=== PATIENT | female | born 1985 | race Caucasian/White ===

== ENCOUNTER 2016-04-02 06:22 | Inpatient (IN) | payer BC ==
--- NOTE | 2016-03-22 15:48 | HP ---
PREOPERATIVE HISTORY AND PHYSICAL: DATE OF ADMISSION: This patient is scheduled for AA admission by Dr. Martinez on 04/02/16. DATE OF PREOPERATIVE HISTORY AND PHYSICAL EXAMINATION: 03/19/16. ATTENDING SURGEON: Dr. Sukhjinder Martinez (dictated by Ingris Hobson NP). CHIEF COMPLAINT: Morbid obesity. HISTORY OF PRESENT ILLNESS: The patient is a 30-year-old female with a body mass index of 54.9, who has been deemed an appropriate candidate by Dr. Martinez to proceed with laparoscopic sleeve gastrectomy. She has a long-standing history of obesity and has tried and failed multiple medical attempts at weight loss. She has support of her primary care provider, Dr. Sheila Grijalva. She has completed all of the necessary preoperative diagnostic testing and evaluations. Dr. Martinez has discussed with her the nature of laparoscopic sleeve gastrectomy and at the same setting, she will also have a hiatal hernia repair; Dr. Martinez discussed the expected results of surgery, the relevant risks, benefits, and alternatives, and today I reviewed the typical hospitalization and the expected postoperative care and recovery. The patient understands the need to comply with the recommended diet stages, exercise, vitamin and mineral supplementation, and followup visits at [facility]. The patient has had a chance to ask questions and stated that she understands the information and is satisfied with the answers given to her questions. She will sign surgical consent on the day of surgery. PAST MEDICAL HISTORY: Significant for clinically severe obesity, prediabetes, gastroesophageal reflux disease, irregular periods, and obstructive sleep apnea. PAST SURGICAL HISTORY: None. OB HISTORY: 0. Last menstrual period November 2015, her periods are very irregular; she is up-to-date with pelvic and Pap smear. EDICATIONS: 1. Omeprazole 40 mg p.o. daily. 2. She had been on an oral contraceptive called Tri-Estarylla, and she was advised to discontinue that preoperatively and she took her last dose 03/18/____ _. ALLERGIES: No known drug allergies. FAMILY HISTORY: She reports that obesity runs on her mother's side of the family; both mother and father have had diabetes; paternal grandmother from esophageal cancer and was described as obese. No known history of deep vein thrombosis or pulmonary embolism or bleeding tendencies or anesthesia complications. SOCIAL HISTORY: She is and employed as a mortgage processing clerk. She quit smoking 4 years ago after smoking 1 pack a day for 4 years; she rarely drinks alcohol and denies the use of other substances. REVIEW OF SYSTEMS: No recent illnesses; she denies any cardiac conditions or complaints; she has obstructive sleep apnea and uses CPAP; she denies any recent upper respiratory infections; she quit smoking 4 years ago; she underwent upper endoscopy preoperatively and that revealed a [id number] sized hiatal hernia, otherwise within normal limits with a negative CLOtest; she has had long-standing gastroesophageal reflux disease; she denies any chronic constipation; she denies any dysuria, denies any recent urinary tract infections, and denies any history of kidney stones; she denies any neurologic conditions or complaints; she denies any history of unusual bleeding and has never required a blood transfusion; she has tolerated local anesthesia as well as intravenous sedation without any problems. She denies any history of deep vein thrombosis or pulmonary embolism. She has had an elevated hemoglobin A1c and has been on metformin in the past. PHYSICAL EXAMINATION GENERAL SURVEY: The patient is a 30-year-old morbidly obese female. VITAL SIGNS: She stands at 63 inches and weighs 310 pounds for a body mass index of 54.9; blood pressure 128/88, pulse 80 and regular, respiratory rate 20 , temperature 98.8 tympanic. HEENT: Benign. Anicteric sclerae. NECK: Supple. No cervical lymphadenopathy. No thyromegaly. BACK: No CVA tenderness. LUNGS: Breath sounds bilaterally clear and equal. HEART: Regular rate and rhythm. No murmurs or rubs. ABDOMEN: No surgical scars, obese, active bowel sounds, soft, and nontender throughout. No obvious masses, organomegaly, or evidence of ventral hernia, although exam is limited by body habitus. PELVIC AND RECTAL: Up-to-date. Not repeated. EXTREMITIES: Warm without edema or skin ulcerations. NEUROLOGIC: Alert and oriented x3. Steady gait. SKIN: Warm, dry, intact. IMPRESSION: 1. Morbid obesity. 2. Obstructive sleep apnea, requiring CPAP. 3. Gastroesophageal reflux disease. 4. Prediabetes. PLAN: AA admission to Dr. Martinez' service for laparoscopic sleeve gastrectomy on 04/02/16. The patient will have been on her preop diet for 4 weeks. INGRIS HOBSON NP CC: Dr. Sheila Grijalva* [id number]/[facility] #: [id number] [facility]
[~2016-04-02 06:22] MED LIST: Buffered Lidocaine 1% SYR 3ML* 3 ML/SYR SYRINGE INTRADERM ONE; Famotidine IV* 10 MG/ML 2 ML (20 mg) IV ONE; Morphine INJ* 2 MG/ML 1 ML CARPUJECT IV PRN; PROCHLORPERAZINE INJ 5 MG/ML 2 ML VIAL IV PRN
[2016-04-02 06:53] LABS: UR Preg Internal Control QC Line Present
[2016-04-02] MEDS ORDERED: Scopolamine 1.5 mg* PATCH ONE (07:00)
[2016-04-02] MEDS ORDERED: Scopolamine 1.5 mg* PATCH TRANSDERM SCH (07:00)
[2016-04-02] MEDS ORDERED: ceFAZolin 2 GM PREMIX (*) 2 GM/50 ML BAG IVPB ONE (07:00)
[2016-04-02] MEDS ORDERED: ceFAZolin 1 GM in Dextrose (*) 1 GM/50 ML BAG IVPB ONE (07:00)
[2016-04-02] MEDS ORDERED: Famotidine IV* 10 MG/ML 2 ML (20 mg) ONE (07:00)
[2016-04-02] MEDS ORDERED: Bupivacaine 0.5% W/EPI SDV* 30 ML VIAL ONE ×2 (07:17→08:20)
[2016-04-02] MEDS ORDERED: Clindamycin 900 MG IVPREMIX(* 900 MG/50 ML SDV IV ONE (07:26)
[2016-04-02] MEDS ORDERED: fentaNYL* 50 MCG/ML 2 ML VIAL (100 MCG VIAL) ONE ×2 (07:38→10:03)
[2016-04-02] MEDS ORDERED: Morphine INJ* 10 MG/ML 1 ML CARPUJECT ONE ×2 (07:38→10:47)
[2016-04-02] MEDS ORDERED: Midazolam* 1 MG/ML 5 ML VIAL (5 MG) ONE (07:38)
[2016-04-02] MEDS ORDERED: KETAMINE HCL* 50 MG/ML 10 ML VIAL ONE (07:38)
[2016-04-02] MEDS ORDERED: Atracurium* 10 MG/ML 10 ML VIAL ONE (07:39)
[2016-04-02] MEDS ORDERED: Dexamethasone IV* 4 MG/ML 1 ML (4 MG) ONE (08:30)
[2016-04-02] MEDS ORDERED: PROCHLORPERAZINE INJ 5 MG/ML 2 ML VIAL ONE ×2 (08:30→10:03)
[2016-04-02] MEDS ORDERED: Propofol* 10 MG/ML 20 ML BTL IV PUSH ONE (08:30)
[2016-04-02] MEDS ORDERED: Neostigmine Methylsulfate* 2 MG/2 ML SYRINGE ONE (08:30)
[2016-04-02] MEDS ORDERED: Phenylephrine INJ* 10 MG/ML 1 ML VIAL (10 MG) ONE (08:30)
[2016-04-02] MEDS ORDERED: Lidocaine 2% PF * 5 ML VIAL ONE (08:30)
[2016-04-02] MEDS ORDERED: Ondansetron INJ* 2 MG/ML VIAL ONE (08:30)
[2016-04-02] MEDS ORDERED: Glycopyrrolate IV* 0.2 MG/ML 1 ML VIAL ONE (08:30)
[2016-04-02] MEDS ORDERED: HYDROcodone/ACET. 7.5/325 LIQ* 15 ML UDC PO PRN (09:51)
[2016-04-02] MEDS ORDERED: diPHENhydraMINE IV* 50 MG/ML 1 ml VIAL (BENADRYL) SLOW PUSH PRN (09:51)
[2016-04-02] MEDS ORDERED: Acetaminophen ADULT LIQ* 650 MG/20.3 ML UDC PO PRN (09:51)
[2016-04-02] MEDS ORDERED: Ondansetron INJ* 2 MG/ML VIAL IV PRN (09:51)
[2016-04-02] MEDS ORDERED: Pantoprazole IV* 40 MG IV SCH ×2 (10:00→14:00)
[2016-04-02] MEDS: fentaNYL* 50 MCG/ML 2 ML VIAL (100 MCG VIAL) IV PRN ×4 (10:04→10:24)
[2016-04-02] MEDS ORDERED: Ketorolac INJ* 30 MG/ML 1 ML VIAL ONE (12:35)
[2016-04-02] MEDS: Heparin VIAL(*) 5000 UNITS/ML VIAL (FIVE THOUSAND) SUBCUT SCH ×2 (13:50→22:01)
[2016-04-02] MEDS: HYDROmorphone INJ* 1 MG/ML CARPUJECT SYRINGE IV PRN ×2 (14:32→20:11)
[2016-04-02] MEDS: Ketorolac INJ* 30 MG/ML 1 ML VIAL IV PRN (23:54)
[2016-04-03] MEDS: HYDROmorphone INJ* 1 MG/ML CARPUJECT SYRINGE IV PRN (05:01)
[2016-04-03] MEDS: Heparin VIAL(*) 5000 UNITS/ML VIAL (FIVE THOUSAND) SUBCUT SCH (05:01)
[2016-04-03] MEDS: Ketorolac INJ* 30 MG/ML 1 ML VIAL IV PRN (07:45)
[2016-04-03 07:56] VITALS: BP 142/74
--- NOTE | 2016-04-03 09:25 | PN ---
Progress Note - Progress Note SOAP: DISCHARGE NOTE Subjective:slept well,tolerating clears,walking in halls,voiding large,good pain control,wants to go home [] Objective:awake and alert;lungs:clear bilat;heart:RRR,no m/r/g;abd:obese,+bs, soft,incisions intact with marques and dressings,no drainage,no erythema;ext: nontender,no edema Vital Signs Temp 98.4 F 04/03/16 07:11 Pulse 70 04/03/16 08:47 Resp 18 04/03/16 08:54 BP 142/74 04/03/16 07:11 Pulse Ox 100 04/03/16 08:54 Intake & Output 04/02/16 04/03/16 04/03/16 18:59 06:59 18:59 Intake Total 1800 1690 Output Total 500 2100 150 Balance 1300 -410 -150 Weight 301 lb 9.6 oz Intake: IV Fluids 1800 1040 LR 1800 1040 Oral 0 650 Output: Urine 500 2100 150 Other: Estimated Void Small # Bowel Movements 0 # Voids 1 [] Assessment:doing well POD#1 s/p lap sleeve gastrectomy [] Plan:discharge home,instructions reviewed;followup in office next week []
[2016-04-03] MEDS ORDERED: D5W 1/2 NS KCl 20 Meq 1000 ML* 1,000 ML IV SCH (09:52)
--- NOTE | 2016-04-03 10:55 | DS ---
DISCHARGE SUMMARY: DATE OF ADMISSION: 04/02/16 DATE OF DISCHARGE: 04/03/16 DATE OF DICTATION: 04/03/16 ATTENDING PHYSICIAN: Dr. Sukhjinder Martinez. HOSPITAL COURSE: Please refer to admission history and physical for admission details. The patient was taken to the operating room on April 02, 2016 and underwent laparoscopic sleeve gastrectomy. She had an otherwise uneventful postoperative course; and, as of the morning of discharge, was tolerating a 120 mL of clear liquids per hour. She was up walking, her pain was well controlled , and she was voiding large amounts. PHYSICAL EXAMINATION: Her temperature was 98.4, blood pressure was 142/74, pulse 70, respirations 18 and O2 saturation on room air 99%. General: Awake, alert and in no acute distress, sitting up on the edge of the bed drinking clear fluids. Lungs: Clear to auscultation. No rales or wheezes. Heart: Regular rate and rhythm. No murmurs, rubs or gallops. Abdomen: Active bowel sounds. Obese, soft. Laparoscopic incision sites intact with Steri-Strips. No erythema. No active bleeding or drainage. Extremities: Nontender. No edema. IMPRESSION: Postop day #1 status post laparoscopic sleeve gastrectomy, doing very well. PLAN: Discharge home today; discharge instructions were reviewed. Medications were reviewed, she will follow the prescribed bariatric dietary guidelines, and she will have a follow-up appointment in our office on April 10, 2016. INGRIS HOBSON NP CC: [facility]; Dr. Sheila Grijalva* [id number]/[facility] #: [id number] [facility]IT[facility]rystal
--- NOTE | 2016-04-04 01:48 | OP ---
DATE OF OPERATION: 04/02/16 - ROOM #351 DATE OF : 81 SURGEON: Sukhjinder Martinez MD WAGON DRIVER SALESPERSON: Kerwin Moreno MD ANESTHESIOLOGIST: Dr. Streeter. ANESTHESIA: General endotracheal. PRE-OP DIAGNOSE: Morbid obesity and hiatal hernia. POST-OP DIAGNOSES: Morbid obesity and hiatal hernia. OPERATIVE PROCEDURE: Laparoscopic sleeve gastrectomy and hiatal hernia repair. ESTIMATED BLOOD LOSS: Minimal. IV FLUIDS: Crystalloids. SPECIMEN: None. DRAINS: None. COMPLICATIONS: None. COUNTS: The instrument, needle, and sponge counts were correct. DESCRIPTION OF PROCEDURE: The patient was brought to the operating room, placed on the table supine. Sequential compression devices were placed on both lower extremities. General anesthesia was administered. Her abdomen was prepped and draped in the usual sterile fashion. She received appropriate intravenous antibiotics. Entry to the abdomen was through a left upper quadrant incision made to accommodate a 5-mm optical trocar. After accessing the peritoneal cavity, carbon dioxide was insufflated to a pressure of 15 mmHg. A Bernabe liver retractor was placed in the subxiphoid position and used to elevate the left lobe of the liver. No hiatal hernia was immediately evident. Under direct visualization, a 12-mm trocar was placed in the supraumbilical position, a 15- mm trocar placed in the right upper quadrant, and a 5-mm trocar placed in the left upper quadrant laterally. With the patient in reverse Trendelenburg, the pylorus was identified and 6 cm proximal to this, on the greater curvature, the LigaSure was used to skeletonize the greater curvature extending this all the way up to the gastroesophageal junction. Attempts to visualize the posterior hiatus did not reveal any obvious hernia. There was no obvious dimpling anteriorly. The dissection proceeded to enter through the pars flaccida; however, there appeared to be a large vessel coursing through this, as well as a second, larger vessel posteriorly that appeared to be coming directly along the course of the right citlali of diaphragm. Ultimately, dissection then proceeded above the crossing vessels in the pars flaccida and the right citlali of the diaphragm was identified. Again, there was no evidence of a clear hiatal hernia at this point, but upon dissection of the esophageal-phrenic ligament across the anterior portion, there did appear to be a small hiatal hernia present and ultimately it was decided to repair this with an anterior stitch. Prior to this, a sleeve gastrectomy was performed over a 40-Azeri bougie with the Endo CARMEN stapler using reinforced cartridges. The black cartridge was used on the antrum and purple cartridges were used along the remaining portions of the stomach. Next, the repair of the hiatal hernia was performed with a single stitch anteriorly using a 0 Ti-Cron suture. After completing this repair, the specimen was placed into a retrieval bag and retrieved through the right upper quadrant wound and then this wound was closed with 0 Polysorb in an interrupted fashion to approximate muscle and fascia in one layer. After assuring hemostasis, the trocars and liver retractor were removed under direct visualization and carbon dioxide was released. The wounds were then closed with marques and dressings applied. The patient tolerated the procedure well, was extubated, and transferred to the recovery room in stable condition. CC: Sheila Grijalva MD* [id number]/[facility] #: [id number] M[facility]Krystal
[2016-04-05] MEDS ORDERED: Scopolamine PATCH Remove* 1 NOTE MISC PATCH OFF SCH (07:00)
== END 2016-04-03 11:35 | disposition home or self-care (01) | DRG 403 ==
LOC: AA 06:22 → SSU 12:23
PROVIDERS: ADMIT Surgery; ATTEND Surgery
PROC: 0BQS4ZZ (ICD-10-PCS; 2016-04-02)
PROC: 0DB64Z3 Excision of Stomach, Percutaneous Endoscopic Approach, Vertical (ICD-10-PCS; principal; 2016-04-02 08:00)
DX: E66.01 Morbid (severe) obesity due to excess calories (principal); G47.33 Obstructive sleep apnea (adult) (pediatric); Z68.43 Body mass index [BMI] 50.0-59.9, adult; R73.03 Prediabetes; K21.9 Gastro-esophageal reflux disease without esophagitis; Z79.3 Long term (current) use of hormonal contraceptives; Z79.899 Other long term (current) drug therapy; Z83.3 Family history of diabetes mellitus; Z80.0 Family history of malignant neoplasm of digestive organs; Z87.891 Personal history of nicotine dependence; K44.9 Diaphragmatic hernia without obstruction or gangrene
CPT/HCPCS: 81025; 88307; A9270-GY; J0690; J0780; J1100; J1170; J1644; J1885; J2250; J2270; J2405; J2704; J3010

== ENCOUNTER 2016-06-19 00:09 | Emergency (ER) | payer BC ==
[2016-06-19] MEDS ORDERED: NS 0.9% 1000 ML* 1,000 ML IV ONE (00:49)
[2016-06-19] MEDS ORDERED: Morphine INJ* 4 MG/ML 1 ML SYRINGE IV ONE (00:49)
[2016-06-19] MEDS ORDERED: Ondansetron INJ* 2 MG/ML VIAL IV ONE (00:49)
[2016-06-19 01:51] LABS: Hematocrit 37 % (35-47); Hemoglobin 12.2 g/dl (12.0-16.0); Mean Corpuscular HGB Conc 33 g/dl (31-36); Mean Corpuscular Hemoglobin 26 pg (27-31); Mean Corpuscular Volume 79 fL (80-97); Mean Platelet Volume 8 um3 (7.4-10.4); Red Blood Count 4.64 10^6/ul (4.0-5.4); Red Cell Distribution Width 15 % (10.5-15); White Blood Count 10.5 10^3/ul (3.5-10.8)
[2016-06-19 02:05] LABS: ALT 17 U/L (7-52); AST 18 U/L (13-39); Albumin 3.4 g/dL (3.2-5.2); Alkaline Phosphatase 56 U/L (34-104); Anion Gap 8 mmol/L (2-11); BUN/Creatinine Ratio 11.1 (8-20); Blood Urea Nitrogen 11 mg/dL (6-24); CO2 Carbon Dioxide 24 mmol/L (22-32); Calcium 8.8 mg/dL (8.6-10.3); Chloride 103 mmol/L (101-111); EGFR African American 83.6 (>60); Glucose 99 mg/dL (70-100); Lipase 101 U/L (11.0-82.0); Potassium 3.6 mmol/L (3.5-5.0); Sodium 135 mmol/L (133-145); Total Protein 6.4 g/dL (6.4-8.9)
[2016-06-19 02:09] LABS: Urine Bacteria 1+ (Absent); Urine Bilirubin Negative (Negative); Urine Glucose Negative (Negative); Urine Nitrite Negative (Negative)
[2016-06-19] MEDS ORDERED: oxyCODONE/Acetamin 5/325 MG* TAB PO ONE (02:56)
[2016-06-19 03:10] VITALS: BP 140/100
--- NOTE | 2016-06-19 03:29 | ED ---
Becky Rios Alok, scribed for Carlyle Gutierrez on 06/19/16 at 0103 . Abdominal Pain/Female - HPI Summary HPI Summary: 30 y/o female presents to the ED for left flank pain beginning this evening. Pt states that her pain waxes and wanes in intensity and denies fever, nausea, rash , or vomiting. Pt is currently menstruating and unable to confirm/deny hematuria. Pt has h/o kidney stones and states that this feels similar to one. PSHx includes a gastric bypass 2.5 months ago. She drinks ETOH rarely. Pt has NKDA. - History of Current Complaint Chief Complaint: EDFlankPain Stated Complaint: LT SIDE FLANK PAIN Time Seen by Provider: 06/19/16 00:33 Hx Obtained From: Patient Hx Last Menstrual Period: Currently ?: No Onset/Duration: Lasting Hours, Still Present Timing: Constant Severity Initially: Moderate Severity Currently: Moderate Pain Intensity: 8 Pain Scale Used: 0-10 Numeric Location: Flank - Left Associated Signs and Symptoms: Negative: Fever, Nausea, Vomiting, Other: - Rash Allergies/Adverse Reactions: Allergies Allergy/AdvReac Type Severity Reaction Status Date / Time No Known Allergies Allergy Verified 04/02/16 06:58 PMH/Surg Hx/FS Hx/Imm Hx Respiratory History: Reports: Hx Sleep Apnea - UNDER TX FOR 11 MONTHS GI History: Reports: Hx Gastroesophageal Reflux Disease - CONTROL WITH MEDS, Hx Hiatal Hernia - TO BE REPAIRED WITH SURGERY History: Reports: Hx Kidney Infection - AGE 6, Hx Kidney Stones - 10 YEARS AGO Sensory History: Reports: Hx Contacts or Glasses - GLASSES Denies: Hx Hearing Aid Opthamlomology History: Reports: Hx Contacts or Glasses - GLASSES Infectious Disease History: No Infectious Disease History: Denies: Traveled Outside the [place] in Last 30 Days - Family History Known Family History: Positive: Other - No- Malignant Hypothermia. No- Anesthesia Reaction. - Social History Occupation: Employed Full-time Lives: With Family Alcohol Use: Rare Substance Use Type: Reports: None Hx Tobacco Use: Yes Smoking Status (MU): Former Smoker Type: Cigarettes Amount Used/How Often: 1 PPD Have You Smoked in the Last Year: No Review of Systems Negative: Fever Negative: Vomiting, Nausea Positive: flank pain - Left Negative: Rash All Other Systems Reviewed And Are Negative: Yes Physical Exam Triage Information Reviewed: Yes Vital Signs On Initial Exam: Initial Vitals Temp Pulse Resp BP Pulse Ox 97.6 F 78 16 147/88 100 06/19/16 00:12 06/19/16 00:12 06/19/16 00:12 06/19/16 00:12 06/19/16 00:12 Vital Signs Reviewed: Yes Appearance: Positive: Well-Appearing, No Pain Distress Skin: Positive: Warm, Skin Color Reflects Adequate Perfusion, Dry Head/Face: Positive: Normal Head/Face Inspection Eyes: Positive: EOMI, TOMMIE ENT: Positive: Normal ENT inspection Neck: Positive: Supple, Nontender Respiratory/Lung Sounds: Positive: Clear to Auscultation, Breath Sounds Present Cardiovascular: Positive: RRR, Pulses are Symmetrical in both Upper and Lower Extremities Abdomen Description: Positive: Nontender, Soft Bowel Sounds: Positive: Present Musculoskeletal: Positive: Normal, Strength/ROM Intact Neurological: Positive: Normal, Sensory/Motor Intact, Alert, Oriented to Person Place, Time Diagnostics - Vital Signs Vital Signs Temp Pulse Resp BP Pulse Ox 06/19/16 00:12 97.6 F 78 16 147/88 100 - Laboratory Result Diagrams: 06/19/16 01:30 06/19/16 01:30 Lab Statement: Any lab studies that have been ordered have been reviewed, and results considered in the medical decision making process. - CT Abd/Pel CT CT Interpretation: Positive (See Comments) - Impression: Moderate distal hydroureter of a duplicated right renal collecting system secondary to a cluster of 3 distal UVJ stones measuring up to 7 mm. Moderate amoud of diffuse solid stool. CT Interpretation Completed By: Radiologist Abdominal Pain Fem Course/Dx - Course Course Of Treatment: PT came in with abd pain. Labs and CT done. pt has right renal calculi with no right sided pain. Only left flank pain. Pt demanded narcotics for pain but there was no indication of need. Will discharge with motrin and FU with urology. - Diagnoses Provider Diagnoses: Left flank pain Discharge - Discharge Plan Condition: Stable Disposition: HOME Prescriptions: Ibuprofen TAB* [Motrin TAB* 600 MG] 600 mg PO Q8H PRN #20 tab PRN Reason: Pain Patient Education Materials: Flank Pain (ED) Referrals: Jorge Corrales MD [Medical Doctor] - Additional Instructions: Please follow up with Dr. Corrales (Urology) in the next 3 days. The documentation as recorded by the Becky botello Alok accurately reflects the service I personally performed and the decisions made by me, Carlyle Gutierrez.
--- NOTE | 2016-06-19 09:32 | RAD ---
Indication: Left flank pain. CT of the abdomen and pelvis was performed without oral or IV contrast administration. Coronal and sagittal reconstructed images were obtained. The lung bases demonstrate no pleural fluid, nodules or masses. Heart is of normal size without evidence of pericardial effusion. The liver is normal in size. Low density area is noted in the medial segment of the left lobe of the liver consistent with focal fatty infiltration. No other focal lesions are noted. No intrahepatic duct dilatation is noted. The gallbladder demonstrates no calcified gallstones. No pericholecystic fluid or wall thickening is identified. Common duct is not dilated. The pancreas demonstrates no mass effect or pancreatic duct dilatation. The spleen is normal in size. The patient is status post gastric bypass surgery. No adrenal lesions are noted. The kidneys demonstrate duplicated right renal collecting system. Dilated right ureter that is conjoined is noted in the distal ureter. There are three calculi in the right ureterovesicular junction measuring up to 14 mm in total. The distal left ureter is not dilated. No retroperitoneal lymphadenopathy is noted. No dilated loops of bowel are noted. The colon is filled with stool. The uterus and ovaries are unremarkable. No hernias are noted. IMPRESSION: 1. Duplicated right renal collecting system with multiple calculi in the distal right ureter with multiple calculi in the right ureterovesicular junction within the urinary bladder. 2. Likely fatty infiltration in the medial segment of the left lobe of the liver.
== END 2016-06-19 03:10 | disposition home or self-care (01) ==
LOC: ED 00:09
DX: R10.32 Left lower quadrant pain (principal); N20.1 Calculus of ureter; Z87.442 Personal history of urinary calculi; Z32.02 Encounter for pregnancy test, result negative; K21.9 Gastro-esophageal reflux disease without esophagitis; Z98.84 Bariatric surgery status; Z87.891 Personal history of nicotine dependence
CPT/HCPCS: 36415; 74176; 80053; 81003; 81015; 83690; 84702; 85025; 85610; 85730; 87086; 96361; 96374; 96375; 99283; A9270-GY; J2270; J2405

== ENCOUNTER 2016-09-29 19:33 | Emergency (ER) | payer BC ==
[2016-09-29] MEDS ORDERED: NS 0.9% 1000 ML* 1,000 ML IV ONE (19:43)
[2016-09-29 20:28] LABS: Hematocrit 43 % (35-47); Hemoglobin 14.1 g/dl (12.0-16.0); Mean Corpuscular HGB Conc 33 g/dl (31-36); Mean Corpuscular Hemoglobin 27 pg (27-31); Mean Corpuscular Volume 82 fL (80-97); Mean Platelet Volume 8 um3 (7.4-10.4); Red Blood Count 5.21 10^6/ul (4.0-5.4); Red Cell Distribution Width 14 % (10.5-15); White Blood Count 11.4 10^3/ul (3.5-10.8)
[2016-09-29 20:40] LABS: Albumin 3.5 g/dL (3.2-5.2); BUN/Creatinine Ratio 14.3 (8-20); C Reactive Protein 8.24 mg/L (< 5.00); Calcium 8.7 mg/dL (8.6-10.3); EGFR African American 111.7 (>60); EGFR Non-African American 86.9 (>60); Globulin 3.2 g/dL (2-4); Potassium 3.4 mmol/L (3.5-5.0); Total Bilirubin 0.5 mg/dL (0.2-1.0); Total Protein 6.7 g/dL (6.4-8.9)
--- NOTE | 2016-09-29 20:40 | ED ---
I, Oh,Soohjulio césarun, scribed for Speedy Webb MD on 09/29/16 at 1945 . Abdominal Pain/Female - HPI Summary HPI Summary: This 30 y/o female presents to ED for acute onset of periumbilical pain radiating back since 40 minutes ago. Pain is rated 8/10 at its worst, and now rated as 6/10. Positive pallor and diaphoresis. Negative n/v. VSS and blood pressure of 120/70 reported by EMT. Pt was sitting in front of computer drinking coffee at the time of onset. Pt reports sudden bowel movement, but states that it is quite normal for her. APAP was taken to control her known headache, but doesn't seem to do anything for her abd pain. PMHx includes GERD, which is controlled with medication, and hernia s/p surgery repair. Pt is currently menstruating, but pt states that pain is different from her usual menstruation cramps. - History of Current Complaint Stated Complaint: ABD PAIN Time Seen by Provider: 09/29/16 19:36 Hx Obtained From: Patient, Medical Records Hx Last Menstrual Period: Currently Onset/Duration: Resolved Timing: Constant Pain Intensity: 6 Pain Scale Used: 0-10 Numeric Location: Umbilical Radiates: Yes Radiates to: Back Character: Dull Aggravating Factor(s): Nothing Alleviating Factor(s): Nothing Associated Signs and Symptoms: Positive: Diaphoresis, Other: - Suddent bowel movement. Negative: Nausea, Vomiting Allergies/Adverse Reactions: Allergies Allergy/AdvReac Type Severity Reaction Status Date / Time No Known Allergies Allergy Verified 04/02/16 06:58 PMH/Surg Hx/FS Hx/Imm Hx Respiratory History: Reports: Hx Sleep Apnea - UNDER TX FOR 11 MONTHS GI History: Reports: Hx Gastroesophageal Reflux Disease - CONTROL WITH MEDS, Hx Hiatal Hernia - TO BE REPAIRED WITH SURGERY History: Reports: Hx Kidney Infection - AGE 6, Hx Kidney Stones - 10 YEARS AGO Sensory History: Reports: Hx Contacts or Glasses - GLASSES Denies: Hx Hearing Aid Opthamlomology History: Reports: Hx Contacts or Glasses - GLASSES Infectious Disease History: Denies: Traveled Outside the [place] in Last 30 Days - Family History Known Family History: Negative: Other - No- Malignant Hypothermia. No- Anesthesia Reaction. - Social History Alcohol Use: Rare Hx Substance Use: No Substance Use Type: Reports: None Hx Tobacco Use: Yes Smoking Status (MU): Former Smoker Type: Cigarettes Amount Used/How Often: 1 PPD Have You Smoked in the Last Year: No Review of Systems Positive: Skin Diaphoresis, Other - pale. Negative: Fever Positive: Abdominal Pain - periumbilical , Other - sudden bowel movement, normal at pt's baseline. Negative: Vomiting, Nausea Positive: Other - back pain All Other Systems Reviewed And Are Negative: Yes Physical Exam Triage Information Reviewed: Yes Vital Signs Reviewed: Yes Appearance: Positive: Well-Appearing, Pain Distress - mild discomfort Skin: Positive: Warm Eyes: Positive: TOMMIE ENT: Positive: Hearing grossly normal Neck: Positive: Supple Respiratory/Lung Sounds: Positive: Breath Sounds Present Cardiovascular: Positive: RRR Abdomen Description: Positive: Nontender, Soft Bowel Sounds: Positive: Present Musculoskeletal: Positive: Strength/ROM Intact Neurological: Positive: Alert, Oriented to Person Place, Time Psychiatric: Positive: Affect/Mood Appropriate Diagnostics - Laboratory Result Diagrams: 09/29/16 20:17 09/29/16 20:17 Lab Statement: Any lab studies that have been ordered have been reviewed, and results considered in the medical decision making process. Re-Evaluation - Re-Evaluation First Eval Change: Improved Abdominal Pain Fem Course/Dx - Course Course Of Treatment: This 30 y/o female presents to ED via ambulance for acute onset of periumbilical pain with diaphoresis and pallor. Pt is currently having menses, but states that pain is different from her usual menstruation pain. Blood work is noted with mildly elevated WBC of 11.4, and elevated lipase of 121 , CRP of 8.24, and elevated AST of 45. UA is noted with 3+ blood, positive urobilinogen, 2+ WBC, 3+ RBC, + oxalate crystal. Pt remains stable throughout ED course. NS IV fluid given. Pt is suitable for discharge. - Diagnoses Provider Diagnoses: Abdominal pain Discharge - Discharge Plan Condition: Improved Disposition: HOME Patient Education Materials: Abdominal Pain (ED) Referrals: Sheila Grijalva MD [Primary Care Provider] - 2 Days The documentation as recorded by the Moody botello Soohyun accurately reflects the service I personally performed and the decisions made by , Speedy Webb MD.
[2016-09-29 20:53] LABS: Urine Bacteria Absent (Absent); Urine Bilirubin Negative (Negative); Urine Glucose Negative (Negative); Urine Nitrite Negative (Negative)
[2016-09-29 21:54] VITALS: BP 143/82
== END 2016-09-29 21:55 | disposition home or self-care (01) ==
LOC: ED 19:33
DX: R10.33 Periumbilical pain (principal); R61 Generalized hyperhidrosis; K21.9 Gastro-esophageal reflux disease without esophagitis; Z87.442 Personal history of urinary calculi; Z87.891 Personal history of nicotine dependence
CPT/HCPCS: 36415; 80053; 81003; 81015; 83690; 83735; 85025; 86140; 96360; 96361; 99283

== ENCOUNTER 2016-10-15 10:46 | Day surgery (SDC) | payer BC ==
--- NOTE | 2016-10-07 15:39 | HP ---
CC: Dr. Sheila Grijalva * PREOPERATIVE HISTORY AND PHYSICAL: DATE OF PREOPERATIVE HISTORY AND PHYSICAL EXAMINATION: 10/07/16 DATE OF ADMISSION: 10/15/16. This patient is scheduled for Same-Day Surgery admission by Dr. Martinez on 10/15/16. ATTENDING SURGEON: Dr. Sukhjinder Martinez * (dictated by Ingris Hobson NP). CHIEF COMPLAINT: Repeated episodes of upper abdominal pain. HISTORY OF PRESENT ILLNESS: The patient is a 30-year-old female 6 months status post laparoscopic sleeve gastrectomy by Dr. Martinez. She had the first of 3 episodes of supraumbilical abdominal pain on 09/29/16. The abdominal pain was rated at 10/10 at onset and was accompanied by radiation into the back, sweatiness, and pallor. She was taken to the emergency room. Her workup included lab work, which revealed a mildly elevated white blood cell count, mildly elevated transaminase and lipase; total bilirubin was normal, and CRP was mildly elevated at 8. She did not have any nausea or vomiting or change in the color of urine or stool. Her pain subsided fairly quickly and she was discharged from the emergency department. She had another similar but milder episode on September 30, and again on October 01, and at that time [facility]. Her presurgical workup prior to the laparoscopic sleeve gastrectomy included an ultrasound of the gallbladder , which did show cholelithiasis. On her visit to our office on 10/01/16, she denied any pain, nausea, or vomiting and today for her preop visit on 10/07/16 she states that she has maintained a very low-fat diet, and has had no further pain or nausea or vomiting. Dr. Martinez has evaluated the patient and has recommended laparoscopic cholecystectomy as a same day surgery procedure. He described the nature of the surgical procedure, the rationale for the procedure , the relevant risks and benefits, and today I reviewed typical postoperative care and recovery. She has had a chance to ask questions and stated that she understands the information and is satisfied with the answers given to her questions. She will sign surgical consent on the day of surgery. PAST MEDICAL HISTORY: Significant for obesity, gastroesophageal reflux disease , irregular menstrual periods, and obstructive sleep apnea. PAST SURGICAL HISTORY: Laparoscopic sleeve gastrectomy on 04/02/[address] Martinez. OB HISTORY: 2. She is currently on oral contraceptives. Last menstrual period started on 10/02/16. MEDICATIONS: 1. Omeprazole 40 mg p.o. daily at 7 p.m. 2. Tri-Estarylla 0.18/0.215/0.25 mg - 35 mcg p.o. daily at 7 p.m. ALLERGIES: No known drug allergies. SOCIAL HISTORY: She is and is employed as a mortgage processer. She is a nonsmoker. She abstains from alcohol and denies the use of other substances. FAMILY HISTORY: Parents both with diabetes. No known history of deep vein thrombosis or pulmonary embolism or bleeding tendencies or anesthesia complications. REVIEW OF SYSTEMS: Constitutional: No fever or chills. Endocrine: No diabetes or thyroid disease. Hematologic: No easy bruising or bleeding. No history of deep vein thrombosis or pulmonary embolism. Respiratory: No cough or dyspnea on exertion. Cardiovascular: No chest pain or palpitations. Gastrointestinal: As described in history of present illness. Genitourinary: No dysuria. Musculoskeletal: No chronic back or joint pain. General: No previous anesthesia complications. Neurologic: No headache or blurred vision. PHYSICAL EXAMINATION GENERAL SURVEY: The patient is a 30-year-old obese female, in no acute distress. VITAL SIGNS: Height 63 inches, weighs 233 pounds, body mass index 41.3. Blood pressure 122/68, pulse 76 and regular, respiratory rate 16, temperature 98.7 tympanic. HEENT: Anicteric sclerae. NECK: Supple. No cervical lymphadenopathy. LUNGS: Breath sounds bilaterally clear and equal. HEART: Regular rate and rhythm. No murmurs or rubs appreciated. ABDOMEN: Obese, soft, nondistended, and nontender throughout. Negative Lantigua sign. No guarding. Multiple well-healed surgical scars. No obvious masses, organomegaly, or evidence of incisional or ventral hernia. PELVIC: Deferred. RECTAL: Deferred. EXTREMITIES: Warm without edema or skin ulceration. NEUROLOGIC: Alert and oriented x3. Steady gait. SKIN: Warm, dry, anicteric. IMPRESSION: Symptomatic cholelithiasis. PLAN: Same-Day Surgery admission to Dr. Martinez' service on 10/15/16, for a laparoscopic cholecystectomy. INGRIS HOBSON, CATTLE BRANDER [id number]/[facility] #: [id number] [facility], [place]
[~2016-10-15 10:46] MED LIST changes: +Buffered Lidocaine 0.9% SYRIN* 5 ML/SYR SYRINGE INTRADERM ONE; -Buffered Lidocaine 1% SYR 3ML* 3 ML/SYR SYRINGE INTRADERM ONE; +Dexamethasone IV* 4 MG/ML 1 ML (4 MG) IV SLOW PU ONE; +Dexamethasone IV* 4 MG/ML 1 ML (4 MG) ONE; +Famotidine IV* 10 MG/ML 2 ML (20 mg) ONE; -Morphine INJ* 2 MG/ML 1 ML CARPUJECT IV PRN; -PROCHLORPERAZINE INJ 5 MG/ML 2 ML VIAL IV PRN; +ceFAZolin 2 GM PREMIX (*) 50 ML IVPB ONE
[2016-10-15] MEDS ORDERED: Buffered Lidocaine 0.9% SYRIN* 5 ML/SYR SYRINGE ONE (10:47)
[2016-10-15] MEDS ORDERED: Bupivacaine 0.25% SDV* 30 ML ONE (14:12)
[2016-10-15] MEDS ORDERED: Propofol* 10 MG/ML 20 ML BTL IV PUSH ONE (14:30)
[2016-10-15] MEDS ORDERED: Succinylcholine* 20 MG/ML 10 ML VIAL ONE (14:30)
[2016-10-15] MEDS ORDERED: fentaNYL* 50 MCG/ML 5 ML VIAL (250 MCG VIAL) ONE (14:30)
[2016-10-15] MEDS ORDERED: Lidocaine 2% PF * 5 ML VIAL ONE (14:30)
[2016-10-15] MEDS ORDERED: Ketorolac INJ* 30 MG/ML 1 ML VIAL ONE (14:45)
[2016-10-15] MEDS ORDERED: Ondansetron INJ* 2 MG/ML VIAL ONE (14:51)
[2016-10-15] MEDS ORDERED: HYDROcodone/ACETAMIN 5-325 MG* 1 TAB PO PRN (15:03)
[2016-10-15] MEDS ORDERED: oxyCODONE/Acetamin 5/325 MG* TAB PO PRN (15:03)
[2016-10-15] MEDS ORDERED: PROCHLORPERAZINE INJ 5 MG/ML 2 ML VIAL IV PRN (15:03)
[2016-10-15] MEDS ORDERED: fentaNYL* 50 MCG/ML 2 ML VIAL (100 MCG VIAL) IV PRN (15:03)
[2016-10-15] MEDS ORDERED: Metoprolol Tartrate IV* 1 MG/ML 5 ML VIAL ONE (15:28)
--- NOTE | 2016-10-15 15:46 | PN ---
Progress Note - Progress Note Date of Service: 10/15/16 Note: Brief Operative Note: Preop Dx: symptomatic cholelithiasis Postop Dx: same Procedure: laparoscopic cholecystectomy Anesthesia: GET Surgeon: Juan Asst: ANSHU Resendez; BERTA Michel Fluids: 1600 ml EBL: < 100 ml Drains: none Specimen: gallbladder Findings: dictated
[2016-10-15] MEDS ORDERED: fentaNYL* 50 MCG/ML 2 ML VIAL (100 MCG VIAL) ONE (16:24)
[2016-10-15] MEDS ORDERED: oxyCODONE/Acetamin 5/325 MG* TAB ONE (16:24)
[2016-10-15 16:34] VITALS: BP 141/98
--- NOTE | 2016-10-16 01:37 | OP ---
CC: Sheila Grijalva MD * DATE OF OPERATION: 10/15/16 - SDS DATE OF : 81 SURGEON: Sukhjinder Martinez MD FIELD CHECKER: ANSHU Solo ANESTHESIOLOGIST: Dr. Mich Emerson. ANESTHESIA: General endotracheal. PRE-OP DIAGNOSIS: Symptomatic cholelithiasis. POST-OP DIAGNOSIS: Symptomatic cholelithiasis. OPERATIVE PROCEDURE: Laparoscopic cholecystectomy. ESTIMATED BLOOD LOSS: 50 mL. IV FLUIDS: Crystalloid. SPECIMENS: Gallbladder contents. DRAINS: None. COMPLICATIONS: None. COUNTS: The instrument, needle, and sponge counts were correct. DESCRIPTION OF PROCEDURE: The patient was brought to the operating room and placed on the table supine. Sequential compression devices were placed on both lower extremities. General anesthesia was administered. She was positioned and padded appropriately. Warming blanket was placed. She received appropriate intravenous antibiotics. Her abdomen was prepped and draped in the usual sterile fashion. A time-out was performed. Local anesthetic was infiltrated into the skin and soft tissue prior to making each incision. Entry into the abdomen was through the right upper quadrant incision to accommodate a 5-mm optical trocar. After accessing the peritoneal cavity, carbon dioxide was insufflated to a pressure 15 mmHg. Under direct visualization, a 12-mm trocar was placed in the subxiphoid position and two additional 5-mm trocars were placed in the right upper quadrant. The inspection revealed that the initial port had actually traversed the omentum and into the mesentery. There was a little bit of gas that had been insufflated into the mesentery of the small bowel and careful inspection revealed that there was no evidence of injury to the small bowel or retroperitoneum. The gallbladder was inspected. It was fatty infiltrated; otherwise, did not appear to be acutely inflamed. The gallbladder was grasped at the fundus and retracted superiorly and the infundibulum was identified. The peritoneum investing the gallbladder wall was incised with sharp dissection and cautery and then the infundibulocystic duct junction was skeletonized as well as the cystic artery. A critical view was obtained. Subsequently, the artery was clipped and divided. The duct was doubly clipped and divided and then the gallbladder was freed from its attachments from the liver bed using the cautery and staying in an avascular plane. Once the gallbladder was freed, this was placed into an endoscopic retrieval bag and retrieved through the 12-mm port site. Inspection of the liver bed revealed 2 areas of bleeding, one along the edge of the fundus and this was controlled with cautery and there was some brisk arterial bleeding within the portion of the gallbladder mesentery and this was controlled with clip placement. After assuring hemostasis, copious lavage was performed until clear. Ports were then removed under direct visualization and carbon dioxide was released. Skin incisions were then closed with 4-0 Monocryl in a subcuticular fashion and Steri-Strips were applied. The patient tolerated the procedure well. She was subsequently extubated uneventfully and transferred to recovery room in stable condition. [id number]/[facility] #: [id number] JD
== END 2016-10-15 16:57 | disposition home or self-care (01) ==
LOC: OR 10:46
PROVIDERS: ATTEND Surgery
DX: K80.10 Calculus of gallbladder with chronic cholecystitis without obstruction (principal); Z87.891 Personal history of nicotine dependence; Z98.84 Bariatric surgery status; R10.84 Generalized abdominal pain; K21.9 Gastro-esophageal reflux disease without esophagitis; G47.33 Obstructive sleep apnea (adult) (pediatric)
CPT/HCPCS: 81025; 88304; A9270-GY; J0330; J0690; J1100; J1885; J2405; J2704; J3010